=== PATIENT | male | born 1965 | race Caucasian/White ===

== ENCOUNTER 2024-06-26 14:42 | Outpatient (REF) | payer BC, SELFPAY ==
[2024-06-26 20:18] LABS: HCT 47.4 % (40.0-50.0); HGB 15.8 g/dL (13.5-17.5); MCH 28.9 pg (27.0-33.0); MCHC 33.3 % (32.0-36.0); MCV 87 fL (80-95); MPV 9.6 fL (8.0-11.0); Platelet Count 285 10^3/uL (130-400); RBC 5.46 10^6/uL (4.36-5.78); RDW 12.6 % (11.8-14.1); RDW-SD 39.9 fL; WBC 7.87 10^3/uL (4.4-10.8)
[2024-06-26 21:00] LABS: ALT 32 U/L (16-63); AST 29 U/L (15-37); Albumin 4.1 g/dL (3.4-5.0); Alkaline Phosphatase 70 U/L (46-116); BUN 18 mg/dL (7-18); Bilirubin, Total 0.42 mg/dL (0.2-1.0); CREATININE 1.2 mg/dL (0.70-1.30); Calcium 9.3 mg/dL (8.5-10.1); Calculated LDL 107 mg/dL (<100); Chloride 105 mmol/L (98-107); Cholesterol 195 mg/dL (<200); Glucose 78 mg/dL (74-106); HDL Cholesterol 63 mg/dL (40-60); Potassium 4.1 mmol/L (3.5-5.1); Sodium 141 mmol/L (136-145); TSH (W/Ref FT4) 1.36 uIU/mL (0.36-3.74); Total Protein 7.3 g/dL (6.4-8.2); Triglyceride 126 mg/dL (<150)
[2024-06-27 19:26] LABS: PSA, Screening 1.1 ng/mL (<=4.5)
== END 2024-06-26 14:43 | disposition home or self-care (01) ==
LOC: NCHCN 14:42
PROVIDERS: PCP Nurse Practitioner Family; Visit Provider Nurse Practitioner Family
DX: Z00.00 Encounter for general adult medical examination without abnormal findings (principal)
CPT/HCPCS: 80053; 80061; 84153; 85027; 84443

== ENCOUNTER 2024-09-30 08:25 | Day surgery (SDC) | payer BC, SELFPAY ==
--- NOTE | 2024-09-29 14:54 | W.ANESPRE ---
General Info Date of Service Date Performed: 09/30/24 Height: 6 ft Weight: 84.368 kg Body Mass Index (BMI): 25.2 Surgical Procedure: Operation Date: 09/30/24 10:35 Proposed Procedure Side Surgeon p Colonoscopy Yan Cohen MD Meds Allergies and Home Medications Allergies Allergy/AdvReac Type Severity Reaction Status Date / Time oxycodone AdvReac Intermediate Dont like Uncoded 09/30/24 08:42 how they make me feel. vicoden AdvReac Intermediate dont like Uncoded 09/30/24 08:42 how they make me feel. Home Medication ?Medication ?Instructions ?Recorded tnijlmaboqmu-amj-lykzw acid-vit 1 tab PO DAILY 09/02/24 K-lycop 400 mcg-20 mcg-370 mcg tablet (One Daily Men's 50 Plus with D3) omega-3 fatty acids-fish oil 360 1 cap PO DAILY 09/02/24 mg-1,200 mg capsule (Fish Oil) bisacodyl 5 mg tablet,delayed 5 mg PO ONCE colonscopy bowel prep 09/24/24 release (Dulcolax (bisacodyl)) #8 tabs peg 3350-electrolytes 236 240 ml PO Q10M #240 mL 09/26/24 gram-22.74 gram-6.74 gram-5.86 gram solution (Golytely) Current Visit Medications: Current Medications Generic Name Dose Route Start Last Admin Trade Name Freq PRN Reason Stop Dose Admin Ringer's Solution 1,000 mls @ 80 mls/hr 09/30/24 06:00 IV 09/30/24 23:59 INFUSION SILVIA IV Miscellaneous Supplies 1 each 09/30/24 06:00 Iv Access IV 09/30/24 23:59 DIRECTED SILVIA Sodium Chloride 0 ml 09/30/24 06:00 Normal Saline Flush 10 Ml Syr IV 09/30/24 23:59 PRN PRN Sodium Chloride 0 ml 09/30/24 06:00 Normal Saline 10 Ml Vial IJ 09/30/24 23:59 DIRECTED PRN Sterile Water 0 ml 09/30/24 06:00 Water,Injection,Sterile 10 Ml Vial IJ 09/30/24 23:59 DIRECTED PRN PFSH Active Problems Active Problems: Problem Status Onset Code Cannabis dependence Acute F12.20 Wart of hand Acute B07.9 Medical History Medical History History of colon polyps (~11/24/21) high grade 2015 numerous Tubulovillous adenoma Plantar wart Glaucoma Foot pain, left GERD (gastroesophageal reflux disease) Eye disorder Back pain Surgical History Surgical History History of colonoscopy with polypectomy (~11/24/21) Note that pt had poor prep, recommend longer prep, 17 polyps removed, some large per note Done at [facility] Tobacco Smoking/Tobacco Use Status: Former Tobacco Use Alcohol Alcohol Intake: current Alcohol intake frequency: a few times a week Substance Use Substance use: Daily Substance use type: marijuana Details: daily use Vital Signs and Lab Results Vital Signs Most Recent Vital Signs in EMR: Temp Pulse Resp BP Pulse Ox 36.2 C L 82 16 144/88 H 98 09/30/24 08:31 09/30/24 08:31 09/30/24 08:31 09/30/24 08:31 09/30/24 08:31 Lab Results Blood Type / Crossmatch: No Data to Display Complete Blood Count: No Data to Display Complete Metabolic Panel: No Data to Display Liver Function Panel: No Data to Display Coagulation Panel: No Data to Display Cardiac Panel: No Data to Display Arterial Blood Gas: No Data to Display Venous Blood Gas: No Data to Display Pancreas Panel: No Data to Display Thyroid Panel: No Data to Display Infectious Disease: No Data to Display Blood Cultures: No Data to Display Toxicology Panel: No Data to Display Anesthesia Assessment and Plan Anesthesia History Personal History: No History of Anesthesia Complications Family History: No Family History of Anesthesia Complications Exercise Tolerance Exercise Tolerance: Metabolic Equivalents>4 Cardiac & Pulmonary Exam Cardiac Exam: Normal S1/S2 Heart Sounds Pulmonary Exam: Clear Bilateral Breath Sounds Implantable Cardiac Device Does patient have a Pacemaker or an ICD?: No Airway Exam Known Difficult Airway: No Mallampati Class: 4 Mouth Opening: Normal (> 3cm) Thyromental Distance: Greater than 3 cm Neck Range of Motion: Full ROM Neck Circumference: Normal Teeth Condition: Normal Dentition ASA Classification ASA Score: ASA 2 Emergency Case?: No NPO Status NPO Status: NPO Clears >2 hours, Solids >8 hours Anesthesia Plan Resuscitation Status: Full Code Anesthesia Technique: General Anesthesia Airway Planned: Natural Airway Monitors Used: Standard Monitors Preoperative Comments:: 59 yo male for colo. Sig PMHx: GERD (well controlled), former smoker, occ etOH. Denies major health issues. States vomiting with previous colo a while ago, but last one was fine minus nausea from the fentanyl.
[2024-09-30 08:31] VITALS: BP 144/88; PULSE 82; RESP 16; TEMP 36.2; O2SAT 98
[2024-09-30] MEDS: Lactated Ringers 1,000 ML 80 ML IV (08:49)
[2024-09-30 08:53] VITALS: BMI 25.2
--- NOTE | 2024-09-30 10:33 | SCONE_ITS ---
Date of service: 09/30/24 Time of Service: 10:36 Assessment and Plan Assessment and plan (1) Tubulovillous adenoma: Assessment and plan: 59-year-old man with a personal history of tubulovillous colon polyps due for surveillance colonoscopy. Plan: Colonoscopy History of Present Illness Narrative: 59-year-old man has a personal history of polyps. He has no symptoms of concern. No family history of colon cancer. No intra-abdominal surgery history. His last colonoscopy was 3 years ago and was significant for polyps. He had a poor prep. PFSH All Active Problems Cannabis dependence (Acute) Wart of hand (Acute) Medical History History of colon polyps (~11/24/21) high grade 2015 numerous Tubulovillous adenoma Plantar wart Glaucoma Foot pain, left GERD (gastroesophageal reflux disease) Eye disorder Back pain Surgical History History of colonoscopy with polypectomy (~11/24/21) Note that pt had poor prep, recommend longer prep, 17 polyps removed, some large per note Done at [facility] Social History (Updated 09/02/24 @ 13:38 by Rose Grant MD) Smoking/Tobacco Use Status: Former Tobacco Use Quit Date: 07/24/19 Smoking risk assessment performed?: Yes Alcohol Intake: current Alcohol Intake frequency: a few times a week Drug use: Daily Substance use type: marijuana Details: smoked 09/29 Housing: house Do you feel safe at home: Yes Do you feel safe in your relationship?: Yes Exam Narrative Exam Narrative: Gen: Non-toxic, comfortable and interactive Neuro: Alert and oriented x3 Psych: Good mood and affect. Good insight and understanding into condition. Chest: Non-labored breathing, no wheezing, no visible shortness of breath. Heart: Regular Results Last Vital Signs Temp 97.2 F L 09/30/24 08:31 Pulse 82 09/30/24 08:31 Resp 16 09/30/24 08:31 BP 144/88 H 09/30/24 08:31 Pulse Ox 98 09/30/24 08:31
--- NOTE | 2024-09-30 11:05 | BOWEL_PTH ---
PATIENT: Miguel Angel Sanchez LOC: [facility] U#:[id number] AGE/SX: 59/M ROOM: RE09/30/[address]: Yan Cohen : 1965 BED: DIS: 09/30/2024 SPEC #: [id number] RECD: 09/30/24 13:18 STATUS: NANCI REQ #: [id number] VIANEY: 09/30/24 11:[address]: Yan Cohen DEPT: Surgical Specimen RECD BY: Liza Brody ENTERED: 09/30/24 13:19 SP TYPE: Bowel OTHR DR: Junie Moreno Tissues: 1 - BIOPSY BOWEL Procedures: GROSS AND MICRO LEVEL 4 Comments: [id number]
[2024-09-30 11:16] VITALS: BP 128/87; PULSE 114; RESP 16; TEMP 36.6; O2SAT 96
--- NOTE | 2024-09-30 11:17 | W.COLOREPORT ---
Date of service: 09/30/24 Time of Service: 11:17 Colonoscopy Report Procedure Description: PROCEDURES PERFORMED: 1. Colonoscopy with cold forceps polypectomy PREOPERATIVE DIAGNOSIS: Surveillance colonoscopy, Colon polyps POSTOPERATIVE DIAGNOSIS: Sigmoid diverticulosis, colon polyp, grade 2 internal hemorrhoids SURGEON: Berny Cohen MD INDICATION for procedure: The patient is a 59-year-old man who has a personal history of tubulovillous polyps. He is no symptoms of concern. He does not have a family history of colon cancer. Last colonoscopy was 3 years ago. FINDINGS: The terminal ileum was normal. In the transverse colon a small 3-5 mm sessile polyp was removed piecemeal with cold forceps technique. There are diverticular changes in the sigmoid colon but no active diverticulitis and no obvious stricture or fibrosis. Grade 2 internal hemorrhoids are present. SURVEILLANCE interval/FOLLOW-UP: 3-5 years pending path results of the polyp. If another adenomatous result then I recommend in 3 years. If hyperplastic by chance and a 5-year follow-up would be acceptable. SPECIMENS: yes EBL: Minimal COMPLICATIONS: None QUALITY of prep: Excellent Procedure in detail: The patient gave written consent and was in agreement with the indications, the potential risks as well as the benefits of the procedure. They were taken to the endoscopy suite and laid in the left lateral decubitus position. A timeout was performed and anesthesia was administered which was tolerated well. I started the procedure. Digital rectal and visual examination was performed and grossly within normal limits. A well-lubricated flexible colonoscope was then introduced and passed without any notable difficulty all the way to the cecum identified by the ileocecal valve and the appendiceal orifice. The terminal ileum was intubated and looked normal. The scope was then slowly withdrawn with the above-noted findings. The patient tolerated the procedure well and was taken to the PACU in hemodynamically stable condition.
--- NOTE | 2024-09-30 11:20 | W.PM.DSUDISC ---
Date of service: 09/30/24 Discharge Plan Disposition Patient Disposition: Home Condition: Good Discharge Details Attending Provider: Yan Cohen Primary Care Provider: Junie Moreno Home Meds and New Rx's Prescriptions: No Action One Daily Men's 50 Plus w-D3 400-20-370 mcg tablet 1 tab PO DAILY omega-3 fatty acids-fish oil [Fish Oil] 360-1,200 mg capsule 1 cap PO DAILY peg 3350-electrolytes [Golytely] 236-22.74-6.74 -5.86 gram recon soln 240 ml PO Q10M Qty: 240 0RF Rx Instructions: until fecal effluent is clear bisacodyl [Dulcolax (bisacodyl)] 5 mg tablet,delayed release (DR/EC) 5 mg PO ONCE Qty: 8 0RF Rx Instructions: take per colonoscopy instructions Discharge Instructions Additional Instructions: FINDINGS: Another small polyp was found today and removed. It is nothing to worry about. The prep was excellent today and you can be certain there are no other polyps present. Some mild to moderate diverticular disease and hemorrhoid disease was noticed today. This is extremely common, benign and nothing needs to be done about it. Stand Alone Forms: Anesthesia Discharge Inst., Colonoscopy Post Instructions, Bruno May (DSU) Activity:: Activity as Tolerated Diet:: As Tolerated DS: Diagnosis Discharge Diagnosis (1) Tubulovillous adenoma:
--- NOTE | 2024-09-30 11:24 | W.ANESPOSTOP ---
Postoperative Evaluation Date, Time and Location Date Performed: 09/30/24 Time Performed: 11:24 Patient Location: Day Surgery Unit Vital Signs Most Recent Imported Vital Signs: Most Recent Vital Signs Temp Pulse Resp BP Pulse Ox 36.6 C 114 H 16 128/87 96 09/30/24 11:16 09/30/24 11:16 09/30/24 11:16 09/30/24 11:16 09/30/24 11:16 Pain Score Most Recent Pain Score: Most Recent Pain Score Pain Level 0 09/30/24 11:16 Assessment Mental Status: Awake (Alert & Oriented to Patient Baseline) Airway and Respiratory Function: Patent airway with normal (patient baseline) respiratory exam Cardiovascular Function: Hemodynamically Stable Hydration Status: Adequately Hydrated Nausea & Vomiting: No Nausea or Vomiting Pain: Pt. Denies Any Pain Peripheral Nerve Block: Patient did not receive a nerve block
[2024-09-30 11:45] VITALS: BP 130/81; PULSE 84; RESP 16; TEMP 36.4; O2SAT 99
== END 2024-09-30 12:05 | disposition home or self-care (01) ==
PROVIDERS: PCP Nurse Practitioner Family; Visit Provider Student in an Organized Health Care Education/Training Program
PROC: 0DJD8ZZ Inspection of Lower Intestinal Tract, Via Natural or Artificial Opening Endoscopic (ICD-10-PCS; CPT 45378; principal; 2024-09-30 10:30)
DX: Z12.11 Encounter for screening for malignant neoplasm of colon (principal); D12.3 Benign neoplasm of transverse colon; K64.1 Second degree hemorrhoids; K57.30 Diverticulosis of large intestine without perforation or abscess without bleeding
CPT/HCPCS: 45380; 88305; J2405; J2704